=== PATIENT | female | born 1945 | race Caucasian/White ===

== ENCOUNTER 2023-08-20 13:24 | Outpatient (CLI) | payer MEDICARE, SELFPAY | END 2023-08-20 13:25 | disposition home or self-care (01) | LOC: NFLDREF 13:26 | PROVIDERS: PCP Family Medicine; Visit Provider Obstetrics & Gynecology | DX: R31.9 Hematuria, unspecified (principal); N95.0 Postmenopausal bleeding | CPT/HCPCS: 87086 ==

== ENCOUNTER 2023-10-02 00:46 | Emergency (ER) | payer MEDICARE, SELFPAY ==
[2023-10-02 00:55] VITALS: BP 167/75; PULSE 89; RESP 20; TEMP 36.6; O2SAT 94; BMI 35.3
--- NOTE | 2023-10-02 01:56 | ED.GENADULT ---
HPI - General Adult General Chief complaint: Extremity Pain/Injury, Lower Stated complaint: pain in both legs Time Seen by Provider: 10/02/23 00:48 Source: patient Mode of arrival: ambulatory Limitations: no limitations History of Present Illness HPI narrative: 78-year-old female comes to the emergency department in middle of the night for evaluation of leg pain. This has been going on for about 4 days. She was seen by her primary care provider less than 24 hours ago for this. She had similar symptoms about 1 year ago that lasted 3 days, was not evaluated, resolve without complication. Achy pain during the day in the right greater than left leg, mainly in the pretibial area but also a little bit on the very lateral calf area and somewhat in the knee area. No trauma or injury. It is vague and the pain becomes more shooting at night. She does not have a history of diabetes or known neuropathy. Her primary care provider recommended prednisone and gabapentin. The medication instructions told the patient to take the gabapentin at bedtime. Her pain became more bothersome prior to bedtime, therefore she did not take the gabapentin. She tried taking some Tylenol at noon which is 13 hours prior to presentation. The rationale is unclear why she did not take more [id number] medication or try the gabapentin prior to coming to the ED. There was no new trauma or injury. No loss of bowel or bladder control. There is no abnormality to the skin or change in the caliber of her pain from the previous evenings. There has been no recent surgery, she is not on blood thinners. She can move and wiggle her toes. She can walk. There is no severe shortness of breath, cardiac symptoms or new motor changes neurologically. Denies history of back surgeries. Past medical history notable for hypertension, hyperlipidemia and anxiety. Medications are as reported in the records but she also endorses use of Zoloft which is not listed. Nonsmoker. I suspect she probably has chronic kidney disease based on the fact that she is on hydralazine. ROS is notable for the leg pain as described above, otherwise denies times 12 systems. Related Data Home Medications Medication Instructions Recorded Confirmed carvedilol 25 mg tablet 25 mg PO BID 08/20/23 10/02/23 felodipine 5 mg tablet,extended 5 mg PO QDAY 08/20/23 10/02/23 release 24 hr hydralazine 50 mg tablet 50 mg PO TID 08/20/23 10/02/23 hydrochlorothiazide 25 mg tablet 25 mg PO QDAY 08/20/23 10/02/23 losartan 100 mg tablet 100 mg PO QDAY 08/20/23 10/02/23 potassium chloride 20 mEq 20 meq PO BID 08/20/23 10/02/23 tablet,extended release pravastatin 20 mg tablet 20 mg PO QHS 08/20/23 10/02/23 Allergies Allergy/AdvReac Type Severity Reaction Status Date / Time No Known Drug Allergies Allergy Verified 10/02/23 00:55 Exam Const: Vital Signs, click to edit/add: Vital Signs - 24 hr 10/02/23 00:55 Temperature 98 F Pulse Rate [Pulse Oximeter] 89 Respiratory Rate 20 Blood Pressure [Ri ght Upper Arm] 167/75 H Pulse Oximetry 94 Oxygen Delivery Me thod Room Air Documenting provider has reviewed patient's vital signs: yes Common normals: no apparent distress General appearance: cooperative, comfortable and well kempt Orientation/consciousness: Yes awake Other: Insight fair. No signs of intoxication. HENMT: Common normals: normocephalic Head and scalp: normocephalic Mouth: oral and palatal mucosa normal Eye: General eye: normal appearance of both eyes Resp: Common normals: normal respiratory effort, no use of accessory muscles and clear to auscultation bilaterally Effort & inspection: able to speak in complete sentences Auscultation: clear to auscultation bilaterally Cardio: Common normals: regular rate, regular rhythm, S1 normal heart sound, S2 normal heart sound and no murmurs Rate: regular rate Rhythm: regular rhythm Heart sounds: S1 normal and S2 normal Back & Pelvis: Other: Spine with some loss of lumbar lordosis and admitted curvature suggestive of mild chronic scoliosis. No point bony tenderness but there is some mild tenderness to the right paraspinal muscles in the lower lumbar areas. No step-offs, crepitus or skin abnormality. Positive straight leg lift. Extremity: Common normals: normal to inspection, full ROM, normal capillary refill and no pedal edema Other: Mild osteoarthritic changes to the knees but no obvious effusion, redness, warmth or signs of inflammation. Neuro: Sensorium/orientation: awake Speech: speech normal Gait (neuro): normal gait Motor exam: strength 5/5 throughout, no tremor noted and no movement abnormalities noted Psych: Appearance: well kempt Mood and affect: euthymic mood Insight: fair Judgement: fair Skin: Common normals: no rashes or lesions noted General skin exam: no rashes or lesions noted Course Course ED Course: Neuropathic type pain on the right, slightly on the left most likely consistent with lumbar radiculopathy. There absolutely no red flags of severe nerve impingement, cauda equina syndrome, compartment syndrome, inflammatory arthritis, DVT or other emergent condition. Counseled patient on proper pain management. She will take Tylenol 1000 mg 3 times daily. Encouraged use of ibuprofen up to twice daily because I am suspicious of underlying chronic kidney disease. She will start the prednisone in the morning as planned. I counseled the patient on the typical pattern of neuropathic pain in let her know that this will likely be worse in the evenings and she is going to need to take medication for this until the prednisone can kick in. For most people, the prednisone does markedly improved the pain within a few days. I would recommend that she take the gabapentin which has been prescribed at 100 mg 2 tablets at bedtime. I have encouraged her to take 1 of the tablets in the mid evening, just after supper. Take the other tablet at bedtime. She has my permission to increase to 300 mg nightly based on the parameters in the discharge instructions. If not improving by Friday, she should call her primary care doctor for further guidance. The types of symptoms that would warrant ED presentation were reviewed with patient and she verbalizes understanding and agreement. Vital Signs Vital signs: Initial Vital Signs Temperature 98 F 10/02/23 00:55 Temperature Source Temporal Artery Scan 10/02/23 00:55 Pulse Rate 89 10/02/23 00:55 Respiratory Rate 20 10/02/23 00:55 Blood Pressure 167/75 H 10/02/23 00:55 Blood Pressure Mean 105 10/02/23 00:55 Blood Pressure Position Sitting 10/02/23 00:55 Pulse Oximetry 94 10/02/23 00:55 Oxygen Delivery Method Room Air 10/02/23 00:55 Vital Signs Temperature 98 F 10/02/23 00:55 Pulse Rate 89 10/02/23 00:55 Respiratory Rate 20 10/02/23 00:55 Blood Pressure 167/75 H 10/02/23 00:55 Pulse Oximetry 94 10/02/23 00:55 Oxygen Delivery Method Room Air 10/02/23 00:55 Temperature 98 F 10/02/23 00:55 Pulse Rate 89 10/02/23 00:55 Respiratory Rate 20 10/02/23 00:55 Blood Pressure 167/75 H 10/02/23 00:55 Pulse Oximetry 94 10/02/23 00:55 Oxygen Delivery Method Room Air 10/02/23 00:55 Discharge Plan Discharge Clinical Impression: Neuropathic pain, leg Patient Disposition: Home w/ Parent or Adult Condition: Stable Instructions: Lumbar Radiculopathy (ED) Additional Instructions: As we discussed, there are no dangerous or emergent reasons for the pain in your leg. There is arthritis in your back that is pressing on the nerve roots causing shooting pain into your legs. This is a very common condition. This is typically worse in the evenings. For most people, this will flare up from time to time and be worse than usual. I completely agree with the assessment from your primary care physician and the treatment plan. Please start your prednisone in the morning as you are planning to do. For most people, there pain gets markedly better about 48 hours after starting the prednisone. For pain, you will need to be consistently taking medication. You will start with Tylenol 1000 mg 3 times daily. Please do not skip doses. If the pain is still bothersome, add in ibuprofen 600 mg 2 times daily. It is okay to take both medications together since they are in different families. I agree with the plan of starting gabapentin. I would recommend that you take 1 tablet at 6-7pm, then the 2nd tablet at bedtime. You have been started on a very low dose. If after 1 night, this is not effective, I gave you permission to increase from 1 tablet to 2 tablets at bedtime. This would be a total of 3 tablets each night. This is still considered a very low dose and may need further titration or adjustment. If you are not starting to get adequate relief by Friday, I would recommend that you make a follow-up appointment with her primary care provider. It will take a few days for these medicines to kick in. Please remember that you can use sleep aids as well such as melatonin, Tylenol p.m. or other similar medications to help you sleep. This is not typically considered any emergent condition. If you have sudden loss of bowel and bladder control and weakness in the legs to the point where you cannot walk or move them, you should come to an emergency department. Prescriptions: No Action felodipine 5 mg tablet extended release 24 hr 5 mg PO QDAY hydralazine 50 mg tablet 50 mg PO TID pravastatin 20 mg tablet 20 mg PO QHS carvedilol 25 mg tablet 25 mg PO BID Rx Instructions: must administer with a meal/food potassium chloride 20 mEq tablet extended release 20 meq PO BID hydrochlorothiazide 25 mg tablet 25 mg PO QDAY losartan 100 mg tablet 100 mg PO QDAY Follow Up/Referrals: Anastasiia Garrido MD [Primary Care Provider] - Stand Alone Forms: [employer] Info Instructions
[2023-10-02] MEDS: ACETAMINOPHEN 500 MG TABLET 1000 MG PO (02:10)
[2023-10-02] MEDS: TRAMADOL HCL 50 MG TABLET PO (02:10)
[2023-10-02] MEDS: GABAPENTIN 300 MG CAPSULE PO (02:11)
== END 2023-10-02 02:20 | disposition home or self-care (01) ==
PROVIDERS: Emergency Provider Family Medicine; PCP Family Medicine
DX: M79.2 Neuralgia and neuritis, unspecified (principal); M54.16 Radiculopathy, lumbar region
CPT/HCPCS: 99283; A9270

== ENCOUNTER 2023-10-27 13:53 | Outpatient (RCR) | payer MEDICARE, SELFPAY | END 2024-02-24 23:59 | disposition home or self-care (01) | PROVIDERS: PCP Family Medicine; Visit Provider Physician Assistant Medical | DX: M54.16 Radiculopathy, lumbar region (principal); Z51.89 Encounter for other specified aftercare | CPT/HCPCS: 97110; 97162 ==

== ENCOUNTER 2024-06-29 18:56 | Emergency (ER) | payer MEDICARE, SELFPAY ==
[2024-06-29 19:29] VITALS: BP 169/83; PULSE 75; RESP 18; TEMP 37.3; O2SAT 97; BMI 34.1
--- NOTE | 2024-06-29 19:52 | ED.GENADULT ---
HPI - General Adult General Date Seen: 06/29/24 Chief complaint: Cough Stated complaint: chest congestion/sore throat Time Seen by Provider: 06/29/24 19:33 History of Present Illness HPI narrative: 79-year-old female presenting to the head with today with cough, nasal congestion, sore throat. She has had symptoms of cough, nasal congestion, sore throat for about 10 days or 2 weeks. They may getting a bit worse lately. In particular she has had pain with swallowing in her throat and her cough has been more productive of clear sputum. She reports she was seen in the urgent care yesterday and put on doxycycline for a sinus infection. Per medical record or, she presented for nasal congestion, sinus pressure in her cheeks, as well as sore throat. Also productive cough. Clear phlegm . She had a strep PCR that was negative. She was put on a prescription for doxycycline 100 mg p.o. b.i.d. for 7 days. She had some wheezing and sparse rhonchi on lung exam. She apparently was given prescription for doxycycline. Her pharmacy was not able to fill that for her yesterday but she did get it filled today and took her 1st pill of that this afternoon. She also received a prescription for an albuterol inhaler but she was unable to fill it because it cost over 300 dollars. She has ongoing nasal congestion, sore throat and ongoing cough so came here to the ER kimberly. She also feels like her lungs are more wheezy today. Related Data Home Medications ?Medication ?Instructions ?Recorded ?Confirmed carvedilol 25 mg tablet 25 mg PO BID 08/20/23 06/28/24 felodipine 5 mg tablet,extended 5 mg PO QDAY 08/20/23 06/28/24 release 24 hr hydralazine 50 mg tablet 50 mg PO TID 08/20/23 06/28/24 hydrochlorothiazide 25 mg tablet 25 mg PO QDAY 08/20/23 06/28/24 losartan 100 mg tablet 100 mg PO QDAY 08/20/23 06/28/24 potassium chloride 20 mEq 20 meq PO BID 08/20/23 06/28/24 tablet,extended release pravastatin 20 mg tablet 20 mg PO QHS 08/20/23 06/28/24 Previous Rx's ?Medication ?Instructions ?Recorded doxycycline hyclate 100 mg capsule 100 mg PO BID 7 days #14 caps 06/28/24 prednisone 20 mg tablet 40 mg (2 x 20 mg) PO DAILY #10 tabs 06/29/24 Allergies Allergy/AdvReac Type Severity Reaction Status Date / Time No Known Drug Allergies Allergy Verified 06/28/24 12:12 [facility] Social History Smoking Status: Current every day smoker What tobacco products do you use: cigarettes Non-prescribed substance use: denies use Exam Narrative: Exam Narrative: Constitutional: Appears well-developed and well-nourished. Alert. Conversant. Non toxic. HENT: Head: Atraumatic. Nose: Nonpurulent rhinorrhea. Nasal mucosa normal. Externally normal. Mouth/Throat: Oral mucosa is clear and moist. no trismus. Pharynx normal. Tonsils symmetric. No tonsillar enlargement, erythema, or exudate. No stridor. Phonation normal. Airway widely patent. Eyes: Conjunctivae normal. EOM normal. Pupils equal, round, and reactive to light. No scleral icterus. Neck: Normal range of motion. Neck supple. No tracheal deviation present. Cardiovascular: Normal rate, regular rhythm. No gallop. No friction rub. No murmur heard. Symmetric radial artery pulses Pulmonary/Chest: Effort normal. No stridor. No respiratory distress. Scarce bilateral wheezes. No rales. No rhonchi . No tenderness. Musculoskeletal: RUE: Normal range of motion. No tenderness. No deformity LUE: Normal range of motion. No tenderness. No deformity RLE: Normal range of motion. No edema. No tenderness. No deformity LLE: Normal range of motion. No edema. No tenderness. No deformity Lymph: No cervical adenopathy. Neurological: Alert and oriented to person, place, and time. Normal strength. CN II-VII intact. No sensory deficit. GCS eye subscore is 4. GCS verbal subscore is 5. GCS motor subscore is 6. Normal coordination Skin: Skin is warm and dry. No rash noted. No pallor. Normal capillary refill. Psychiatric: Normal mood. Normal affect. Const: Vital Signs, click to edit/add: Vital Signs - 24 hr 06/29/24 19:29 Temperature 99.1 F Pulse Rate [Pulse Oximeter] 75 Respiratory Rate 18 Blood Pressure [Ri ght Upper Arm] 169/83 H Pulse Oximetry 97 Oxygen Delivery Me thod Room Air Course Vital Signs Vital signs: Initial Vital Signs Temperature 99.1 F 06/29/24 19:29 Temperature Source Temporal Artery Scan 06/29/24 19:29 Pulse Rate 75 06/29/24 19:29 Respiratory Rate 18 06/29/24 19:29 Blood Pressure 169/83 H 06/29/24 19:29 Blood Pressure Mean 111 H 06/29/24 19:29 Blood Pressure Position Sitting 06/29/24 19:29 Pulse Oximetry 97 06/29/24 19:29 Oxygen Delivery Method Room Air 06/29/24 19:29 Vital Signs Temperature 99.1 F 06/29/24 19:29 Pulse Rate 75 06/29/24 19:29 Respiratory Rate 18 06/29/24 19:29 Blood Pressure 169/83 H 06/29/24 19:29 Pulse Oximetry 97 06/29/24 19:29 Oxygen Delivery Method Room Air 06/29/24 19:29 Temperature 99.1 F 06/29/24 19:29 Pulse Rate 75 06/29/24 19:29 Respiratory Rate 18 06/29/24 19:29 Blood Pressure 169/83 H 06/29/24 19:29 Pulse Oximetry 97 06/29/24 19:29 Oxygen Delivery Method Room Air 06/29/24 19:29 Medications Administered Medications: Discontinued Medications Generic Name Dose Route Start Last Admin Trade Name Freq PRN Reason Stop Dose Admin Albuterol 2 puff 06/29/24 20:23 06/29/24 21:01 Albuterol Inhaler IH 06/29/24 20:24 2 puff ONCE ONE Administration Prednisone 40 mg 06/29/24 20:23 06/29/24 21:00 Prednisone 20 Mg Tablet PO 06/29/24 20:24 40 mg ONCE ONE Administration Medical Decision Making MDM Narrative Medical decision making narrative: This patient presents for evaluation of nasal congestion, productive cough, sore throat ongoing for a at least 10 days, possibly 2 weeks.. This is consistent with an upper respiratory tract infection. Strep swab in urgent care was negative yesterday. She was already put on doxycycline by the urgent care yesterday and took her 1st dose of that today. Differential here is broad. Consider possible COVID or influenza but we decided to hold off on nasal swab because she would be outside the treatment window for Paxlovid or Tamiflu. Lungs sounds review of few wheezes bilaterally. I think this probably is infection induced bronchospasm. She has a history of tobacco use but has not smoked in the past 10 days. Smoking cessation is encouraged. He will start the patient on albuterol. She was not able to fill the albuterol inhaler prescription given to her by the urgent care because of expense. We did give her an inhaler here in the ER with 2 puffs and will send her home with that inhaler so she has the meds at home. Will also put her on a 5 day burst of prednisone. She was already prescribed doxycycline by the urgent care. Since she is on antibiotics which would be appropriate therapy for outpatient pneumonia, I think there would be little benefit obtained at this point by adding on chest x-ray. There are no gastrointestinal symptoms at this point and no signs of dehydration. Close followup with primary care physician is indicated. Return to ED for fever > 103, protracted vomiting, confusion, or other worsening. Plan. Continue doxycycline albuterol 2 puffs every 4 hours as needed Prednisone 40 mg daily for 5 days Discharge Plan Discharge Clinical Impression: URI (upper respiratory infection), COPD exacerbation Patient Disposition: Home, Self-Care Condition: Stable Instructions: Upper Respiratory Infection (ED), COPD (Chronic Obstructive Pulmonary Disease) (DC) Additional Instructions: As we discussed, to help treat your symptoms you can do the following things. 1. Continue taking the antibiotic (doxycycline). It will probably take a couple of days to help treat if your having a bacterial infection 2. Use the albuterol inhaler if needed. Two puffs every 4 hours if needed 3. Use the prednisone 40 mg by mouth once daily for 5 days. 4. For your sore throat, you can use Tylenol or ibuprofen if needed. Drink plenty of fluids, use cold such as popsicles or ice cubes to help soothe your throat Monitor your symptoms carefully. If you are having worsening trouble breathing, more trouble swallowing, weakness or dehydration, return to the ER to be rechecked right away Otherwise, it may take 2-3 days before you start to feel better. If not completely improved within 3 days, please recheck with your doctor or come back to the ER for a recheck. Prescriptions: New prednisone 20 mg tablet 40 mg PO DAILY Qty: 10 0RF No Action felodipine 5 mg tablet extended release 24 hr 5 mg PO QDAY hydralazine 50 mg tablet 50 mg PO TID pravastatin 20 mg tablet 20 mg PO QHS carvedilol 25 mg tablet 25 mg PO BID Rx Instructions: must administer with a meal/food potassium chloride 20 mEq tablet extended release 20 meq PO BID hydrochlorothiazide 25 mg tablet 25 mg PO QDAY losartan 100 mg tablet 100 mg PO QDAY doxycycline hyclate 100 mg capsule 100 mg PO BID 7 Days Qty: 14 0RF Follow Up/Referrals: Anastasiia Garrido MD [Primary Care Provider] - Stand Alone Forms: [employer] Info Instructions
[2024-06-29] MEDS: predniSONE 20 MG TABLET 40 MG PO (21:00)
[2024-06-29] MEDS: ALBUTEROL INHALER 2 PUFF IH (21:01)
== END 2024-06-29 21:05 | disposition home or self-care (01) ==
PROVIDERS: Emergency Provider Emergency Medicine; PCP Family Medicine
DX: J44.1 Chronic obstructive pulmonary disease with (acute) exacerbation (principal); J06.9 Acute upper respiratory infection, unspecified
CPT/HCPCS: 99283; J7512

== ENCOUNTER 2024-07-01 02:04 | Emergency (ER) | payer MEDICARE, SELFPAY ==
[2024-07-01 02:11] VITALS: BP 173/85; PULSE 85; RESP 22; TEMP 36.4; O2SAT 95; BMI 34.3
[2024-07-01] MEDS: AMOXICILLIN/CLAVULANATE 875 mg/125 mg TABLET PO (02:27)
[2024-07-01] MEDS: predniSONE 20 MG TABLET 60 MG PO (02:27)
[2024-07-01] MEDS: IPRAT-ALBUT 0.5-2.5 MG/3 ML NEB 1 NEB IH (02:27)
--- NOTE | 2024-07-01 02:29 | ED_ITS ---
HPI - General Adult General Date Seen: 07/01/24 Chief complaint: Unspecified Complaint, Adult Stated complaint: trouble swallowing, vomiting Time Seen by Provider: 07/01/24 02:12 Source: patient Mode of arrival: ambulatory Limitations: no limitations History of Present Illness HPI narrative: Patient is a 79-year-old female who was seen in urgent care two days ago and in the ER yesterday for 10-12 days of cough and chest congestion. In urgent care she was given doxycycline despite telling the provider that Augmentin works best for her. In the ER yesterday she was given an inhaler which she has used once or twice but tells me that she forgot how to use it. She was also started on prednisone but says that the prescription was never sent in. Her symptoms are not any worse but they are not any better. She does have some lower abdominal discomfort and has had one loose stool. She is concerned that she does not have an appetite and we discussed that that is certainly due to the illness and the antibiotic and is not really an emergent issue. No black or bloody stools. No vomiting but she does cough up some discolored sputum. No fevers or chills. She has only taken three doses of the doxycycline because of the GI upset. She has not smoked in the past 10 days and she is congratulated on that. She is on multiple medications for hypertension and also takes pravastatin. Related Data Home Medications ?Medication ?Instructions ?Recorded ?Confirmed carvedilol 25 mg tablet 25 mg PO BID 08/20/23 06/28/24 felodipine 5 mg tablet,extended 5 mg PO QDAY 08/20/23 06/28/24 release 24 hr hydralazine 50 mg tablet 50 mg PO TID 08/20/23 06/28/24 hydrochlorothiazide 25 mg tablet 25 mg PO QDAY 08/20/23 06/28/24 losartan 100 mg tablet 100 mg PO QDAY 08/20/23 06/28/24 potassium chloride 20 mEq 20 meq PO BID 08/20/23 06/28/24 tablet,extended release pravastatin 20 mg tablet 20 mg PO QHS 08/20/23 06/28/24 Previous Rx's ?Medication ?Instructions ?Recorded doxycycline hyclate 100 mg capsule 100 mg PO BID 7 days #14 caps 06/28/24 prednisone 20 mg tablet 40 mg (2 x 20 mg) PO DAILY #10 tabs 06/29/24 amoxicillin 875 mg-potassium 1 tab PO BID #14 tabs 07/01/24 clavulanate 125 mg tablet prednisone 50 mg tablet 50 mg PO DAILY 5 days #5 tabs 07/01/24 Allergies Allergy/AdvReac Type Severity Reaction Status Date / Time No Known Drug Allergies Allergy Verified 06/28/24 12:12 Review of Systems Narrative: Review of systems is outlined above otherwise noted to be negative. PFSH PFS Social History Smoking Status: Current every day smoker What tobacco products do you use: cigarettes Second hand tobacco smoke exposure: Yes How often do you have a drink containing alcohol: never AUDIT-C Alcohol total score: 0 Non-prescribed substance use: denies use Exam Narrative: Exam Narrative: Vitals noted. Blood pressure is elevated. HEENT: Conjunctiva clear. Tympanic membranes are pearly white bilaterally. Posterior pharynx is clear without erythema or exudate. Neck is supple without adenopathy, thyromegaly, carotid bruit. Lungs: Diminished with expiratory wheezes. She has a frequent loose cough. Her oxygen saturation is 95% on room air. No localizing rales or rhonchi. Heart: Regular rate and rhythm without murmur. Abdomen: Soft and nontender. No guarding, rigidity, rebound. Bowel sounds are normal. No palpable masses. Extremities: No cyanosis or edema. Good distal pulses. Skin: No abnormalities noted of the exposed skin. Neurologic: Awake, alert, fully oriented. Neurologic exam is nonfocal. Const: Vital Signs, click to edit/add: Vital Signs - 24 hr 07/01/24 02:11 07/01/24 02:35 07/01/24 02:36 Temperature 97.6 F 97.6 F 97.6 F Pulse Rate [Right Pulse Oximeter] 85 79 79 Respiratory Rate 22 22 22 Blood Pressure [Ri ght Upper Arm] 173/85 H 155/80 H 155/80 H Pulse Oximetry 95 95 Oxygen Delivery Me thod Room Air Room Air Course Course ED Course: Patient seen and examined. DuoNeb is given with partial clearing of her wheezing. Her oxygen level is normal. She is given 60 mg of prednisone orally and a 1st dose of Augmentin 875 mg orally. I have assured her that both her antibiotic and prednisone have been sent to the pharmacy I apologized that the meds she was promised yesterday did not get sent in by my partner. We also gave her some patient education materials refreshing her on how to properly use her inhaler. Vital Signs Vital signs: Initial Vital Signs Temperature 97.6 F 07/01/24 02:11 Temperature Source Temporal Artery Scan 07/01/24 02:11 Pulse Rate 85 07/01/24 02:11 Respiratory Rate 22 07/01/24 02:11 Blood Pressure 173/85 H 07/01/24 02:11 Blood Pressure Mean 114 H 07/01/24 02:11 Blood Pressure Position Sitting 07/01/24 02:11 Pulse Oximetry 95 07/01/24 02:11 Oxygen Delivery Method Room Air 07/01/24 02:11 Vital Signs Temperature 97.6 F 07/01/24 02:11 Pulse Rate 85 07/01/24 02:11 Respiratory Rate 22 07/01/24 02:11 Blood Pressure 173/85 H 07/01/24 02:11 Pulse Oximetry 95 07/01/24 02:11 Oxygen Delivery Method Room Air 07/01/24 02:11 Temperature 97.6 F 07/01/24 02:36 Pulse Rate 79 07/01/24 02:36 Respiratory Rate 22 07/01/24 02:36 Blood Pressure 155/80 H 07/01/24 02:36 Pulse Oximetry 95 07/01/24 02:35 Oxygen Delivery Method Room Air 07/01/24 02:35 Medications Administered Medications: Generic Name Dose Route Start Last Admin Trade Name Jung PRN Reason Stop Dose Admin Albuterol/Ipratropium 1 neb 07/01/24 02:23 07/01/24 02:27 Iprat-Albut 0.5-2.5 Mg/3 Ml Neb IH 07/01/24 02:24 1 neb ONCE ONE Administration Amoxicillin/Clavulanate Potassium 875 mg 07/01/24 02:23 07/01/24 02:27 Amoxicillin/Clavulanate 875 Mg/125 Mg Tablet PO 07/01/24 02:24 875 mg ONCE ONE Administration Prednisone 60 mg 07/01/24 02:23 07/01/24 02:27 Prednisone 20 Mg Tablet PO 07/01/24 02:24 60 mg ONCE ONE Administration Discharge Plan Discharge Clinical Impression: Acute exacerbation of chronic bronchitis Instructions: How to Use a Metered-Dose Inhaler (ED) Additional Instructions: Stop Doxycycline. Augmentin twice a day for 1 week, Prednisone daily for 5 days, Albuterol inhaler every 4 hours as needed, Mucinex, rest, fluids, humidity. Follow up in the clinic if no better in 5 days. Prescriptions: New prednisone 50 mg tablet 50 mg PO DAILY 5 Days Qty: 5 0RF amoxicillin-pot clavulanate 875-125 mg tablet 1 tab PO BID Qty: 14 0RF No Action felodipine 5 mg tablet extended release 24 hr 5 mg PO QDAY hydralazine 50 mg tablet 50 mg PO TID pravastatin 20 mg tablet 20 mg PO QHS carvedilol 25 mg tablet 25 mg PO BID Rx Instructions: must administer with a meal/food potassium chloride 20 mEq tablet extended release 20 meq PO BID hydrochlorothiazide 25 mg tablet 25 mg PO QDAY losartan 100 mg tablet 100 mg PO QDAY doxycycline hyclate 100 mg capsule 100 mg PO BID 7 Days Qty: 14 0RF prednisone 20 mg tablet 40 mg PO DAILY Qty: 10 0RF Follow Up/Referrals: Anastasiia Garrido MD [Primary Care Provider] - Stand Alone Forms: [employer] Info Instructions
[2024-07-01 02:35] VITALS: BP 155/80; PULSE 79; RESP 22; TEMP 36.4; O2SAT 95
[2024-07-01 02:36] VITALS: BP 155/80; PULSE 79; RESP 22; TEMP 36.4
== END 2024-07-01 03:01 | disposition home or self-care (01) ==
LOC: ED 02:40
PROVIDERS: Emergency Provider Family Medicine; PCP Family Medicine; Visit Provider Family Medicine
DX: J42 Unspecified chronic bronchitis (principal)
CPT/HCPCS: 99281; 99283; A9270; J7512